=== PATIENT | female | born 1970 | race Caucasian/White ===

== ENCOUNTER 2018-12-11 18:59 | Emergency (ER) | payer OTHER ==
[~2018-12-11] VITALS: Ht 165.1 cm; Wt 72.6 kg
[2018-12-11 19:14] VITALS: BP 161/92
[2018-12-11] MEDS ORDERED: KETOROLAC 30 MG/ML VIAL IM ONE (20:05)
[2018-12-11 20:25] VITALS: BP 145/79
[2018-12-11 21:07] LABS: APPEARANCE,URINE CLEAR (CLEAR); BILIRUBIN,URINE NEGATIVE (NEGATIVE); BLOOD, URINE TRACE-I (NEGATIVE); COLOR,URINE YELLOW (YELLOW); LEUKOCYTE ESTERASE ,URINE NEGATIVE (NEGATIVE); NITRITE, URINE NEGATIVE (NEGATIVE); UGLUCOSE NEGATIVE (NEGATIVE)
[2018-12-14 21:51] LABS: CHLAMYDIA TRACHOMATIS AMP DNA NEGATIVE (NEGATIVE)
== END 2018-12-11 20:25 | disposition home or self-care (01) ==
LOC: MED 18:59
DX: R30.0 Dysuria (principal); R05 Cough; Z90.49 Acquired absence of other specified parts of digestive tract
CPT/HCPCS: 36415; 81003; 81025; 87491; 96372; 99283; J1885